=== PATIENT | female | born 1970 | race Caucasian/White ===

== ENCOUNTER 2023-11-03 18:02 | Emergency (ER) | payer OTHER ==
[~2023-11-03] VITALS: Ht 157.5 cm; Wt 80.0 kg
[~2023-11-03 18:02] MED LIST: IBUP-1506 PO
[2023-11-03 18:03] VITALS: BP 118/66; PULSE 94; RESP 18; TEMP 98.7
[2023-11-03] MEDS: IBUPROFEN 600 MG TABLET PO ONE (19:31)
[2023-11-03] MEDS ORDERED: DIPH50CA37 PO (19:55)
[2023-11-03] MEDS ORDERED: IBUP-1554 PO (19:55)
== END 2023-11-03 20:23 | disposition home or self-care (01) ==
LOC: EMS 18:06
DX: M79.622 Pain in left upper arm (principal); Z98.890 Other specified postprocedural states
CPT/HCPCS: 99283